=== PATIENT | male | born 1970 | race Caucasian/White ===

== ENCOUNTER 2019-12-20 14:16 | Emergency (ER) | payer OTHER, SELFPAY ==
--- NOTE | ~2019-12-20 | XR_ITS ---
EXAMINATION: [id number] DATE: 12/20/2019 14:36 INDICATION: Right rib pain. TECHNIQUE: A frontal view of the chest and 3 views of the right ribs were obtained. COMPARISON: Chest 2 views 02/28/2015 FINDINGS: There is no pneumonia, pleural effusion, or pneumothorax. The heart size is normal. Calcifi ed left hilar lymph nodes are consistent with old granulomatous disease. There is a fracture of right fifth rib. IMPRESSION: 1. Right fifth rib fracture. Reviewed, dictated and finalized at location A.
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
[2019-12-20 14:24] VITALS: BP 137/83; PULSE 71; RESP 16; TEMP 36.7; O2SAT 99
== END 2019-12-20 15:07 | disposition home or self-care (01) ==
PROVIDERS: Emergency Provider Nurse Practitioner; PCP Family Medicine
DX: S60.416A Abrasion of right little finger, initial encounter (principal); V19.9XXA Pedal cyclist (driver) (passenger) injured in unspecified traffic accident, initial encounter; S22.31XA Fracture of one rib, right side, initial encounter for closed fracture
CPT/HCPCS: 71101; 99213; G0463

== ENCOUNTER → 2020-02-28 14:28 | Outpatient (CLI) | payer OTHER, SELFPAY ==
--- NOTE | ~2020-02-28 | MR_ITS ---
EXAMINATION: MR shoulder LT wo con DATE: 02/28/2020 15:15 INDICATION: Chronic left shoulder pain. TECHNIQUE: Magnetic resonance imaging (MRI) of the left shoulder was performed without intravenous co ntrast. Sequences included axial PD-weighted FS FSE, coronal oblique PD-weighted FS FSE and T2-weight ed FS FSE, and sagittal oblique T2-weighted FS FSE and T1-weighted FSE. COMPARISON: None. FINDINGS: Coracoacromial arch: The acromion undersurface is curved in morphology (type II). There is mild acromioclavicular joint os teoarthritis. There is mild subacromial/subdeltoid bursitis. Rotator cuff: There is mild supraspinatus and infraspinatus tendinopathy. Teres minor tendon is normal. Subscapular is tendon is normal. No tear. There is no asymmetric fatty atrophy of the rotator cuff muscle bellies . Biceps tendon and glenoid labrum: Biceps tendon is in bicipital groove. Intra-articular biceps tendon is normal. The glenoid labrum is normal. Fluid: There is no glenohumeral joint effusion. Bones/cartilage: Glenoid cartilage is normal. Humeral head cartilage is normal. There is a benign bone island in humer al head. IMPRESSION: 1. Mild rotator cuff tendinopathy. No tear. 2. Mild acromioclavicular joint osteoarthritis. 3. Mild subacromial/subdeltoid bursitis. Reviewed, dictated and finalized at location B. ISH TEACHER
== END ==
PROVIDERS: PCP Family Medicine
DX: M25.512 Pain in left shoulder (principal); G89.29 Other chronic pain; M75.82 Other shoulder lesions, left shoulder; M19.012 Primary osteoarthritis, left shoulder; M75.52 Bursitis of left shoulder
CPT/HCPCS: 73221

== ENCOUNTER → 2020-02-29 12:15 | Outpatient (CLI) | payer OTHER, SELFPAY ==
--- NOTE | ~2020-02-29 | MR_ITS ---
EXAMINATION: MR knee RT wo con DATE: 02/29/2020 12:58 INDICATION: Chronic right knee pain TECHNIQUE: Magnetic resonance imaging (MRI) of the right knee was performed without intravenous contr ast. Sequences included coronal PD-weighted FSE, coronal PD-weighted FS FSE, sagittal T2-weighted FS E, sagittal PD-weighted FS FSE and axial PD weighted fat saturated FSE. COMPARISON: None. FINDINGS: Medial compartment: The medial meniscal body and posterior horn are small, virtually absent in a small portion of the men iscal body likely reflecting changes of interval partial meniscectomy for a prior displaced bucket-tapia ndle tear. No evident recurrent tear of the remaining meniscus. Deep chondral ulceration along the an terior to central weightbearing medial femoral condyle in places likely full/near full-thickness with a few foci of underlying subarticular edema at the anterior weightbearing medial femoral condyle. Si milar deep chondral ulceration at the central to medial aspect of the medial tibial plateau with ale tional small focus of subarticular edema at the medial rim of the medial tibial plateau. A severe par tial thickness cartilage loss with scattered mild chondral surface irregularity throughout the remain trevor of the medial compartment. Lateral compartment: Lateral meniscus is normal. Partial-thickness cartilage loss along the posterior and lateral rim of t he lateral tibial plateau with deep chondral fissure extending 12 mm obliquely from the central to po sterior aspect of the lateral tibial plateau. Small region of deep chondral ulceration with minimal u nderlying cortical irregularity at the central aspect of the weightbearing lateral femoral condyle. C hondral fissuring with additional cortical irregularity and mild subcortical edema at the posterior m argin of the weightbearing lateral femoral condyle. Patellofemoral compartment: Partial-thickness cartilage loss with deep fissuring at the remaining cartilage without degenerative subchondral changes involving significant portions of the lateral facet, the apical ridge and lateral side of the medial facet. Additional extensive deep cartilage loss with chondral surface irregularit y and in places full-thickness with foci of underlying subarticular edema involving significant porti on of the medial lateral trochlea and intervening trochlear groove. There is mild regularity to the a rticular cortex at the trochlear groove and medial trochlea with very small central subchondral osteo phytes. Ligaments and tendons: Anterior and posterior cruciate ligaments are normal. The medial collateral ligament and fibular aleta ateral ligament complex are normal. Mild distal quadriceps tendinopathy with small enthesophytes at i ts patellar insertion. Minimal patellar tendinopathy. The visualized medial and lateral hamstring ten dons as well as the iliotibial band are normal. Fluid: Physiologic amount of fluid in the joint space. No loose osteochondral bodies identified. Osseous/other: Normal marrow signal aside from the previous noted foci of mild subarticular edema. No fracture or pa thologic marrow replacing process. There are linear bands of low signal intensity likely postoperativ e scarring in Hoffa's fat pad extending anteroposteriorly along likely trocar access sites at both th e medial and lateral sides of the patellar tendon. IMPRESSION: 1. Small posterior horn and diminutive body of the medial meniscus likely reflecting changes of prior partial meniscectomy. Correlate with surgical history. 2. Minimal progression in tricompartmental osteoarthritis, moderate severity with extensive high-grad e chondral malacia in the medial compartment, mild to moderate with extensive high-grade chondral mal acia in the patellofemoral compartment and mild with moderate to high-grade chondral malacia in the l ateral compartment.
== END ==
PROVIDERS: PCP Family Medicine
DX: M17.11 Unilateral primary osteoarthritis, right knee (principal)
CPT/HCPCS: 73721

== ENCOUNTER → 2021-10-20 11:45 | Outpatient (CLI) | payer OTHER, SELFPAY ==
--- NOTE | ~2021-10-20 | XR_ITS ---
XR lumbar spine min 4V DATE: 10/20/2021 12:25 INDICATION: Back pain TECHNIQUE: AP, lateral, bilateral oblique views, coned lateral lumbosacral view COMPARISON: None FINDINGS: Minimal lumbar dextroscoliosis. Normal alignment of the lumbar spine. No fracture or bone d estruction is detected. Right L5 pars interarticularis defect. No spondylolysis or spondylolisthesis is noted otherwise. The sacroiliac joints are intact. IMPRESSION: Minimal lumbar dextroscoliosis Right L5 pars interarticularis defect Reviewed, dictated and finalized at location B.
== END ==
PROVIDERS: PCP Family Medicine; Visit Provider Physician Assistant Medical
DX: M54.9 Dorsalgia, unspecified (principal); M41.86 Other forms of scoliosis, lumbar region; M53.86 Other specified dorsopathies, lumbar region
CPT/HCPCS: 72110

== ENCOUNTER → 2022-04-10 09:47 | Outpatient (CLI) | payer OTHER, SELFPAY ==
--- NOTE | ~2022-04-10 | CT_ITS ---
CT Abdomen and Pelvis with contrast. History: Abdominal pain. Spiral CT of the abdomen and pelvis was performed after the administration of intravenous contrast. 1 00 cc of Omnipaque 350 was administered intravenously without complication. Dose reduction technique was used on this scan by utilizing automated exposure control and iterative reconstruction technique. The dose-length product (DLP) was 758.83 mGy-cm. Findings: Scans through the lung bases demonstrate mild atelectatic change. The liver, spleen, pancreas, gallbladder, adrenals and kidneys are within normal limits. No evidence of aortic aneurysm. No lymphadenopathy is seen. There is no evidence of bowel obstruction. There is no evidence to suggest acute appendicitis or dive rticulitis. Images through the pelvis were performed. Urinary bladder unremarkable. Prostate gland and seminal ve sicles are unremarkable. No ascites is seen. Bilateral L5 pars interarticularis defects are noted. Impression: No acute abnormality. Bilateral L5 pars interarticularis defects are noted. Reviewed, dictated and finalized at [facility]. [employer] DESIGN ENGINEER Impression: No acute abnormality. Bilateral L5 pars interarticularis defects are noted.
== END ==
PROVIDERS: PCP Family Medicine; Visit Provider Physician Assistant
DX: R10.9 Unspecified abdominal pain (principal)
CPT/HCPCS: 74177; Q9967

== ENCOUNTER 2023-03-24 09:34 | Outpatient (CLI) | payer OTHER, SELFPAY ==
--- NOTE | ~2023-03-24 | XR_ITS ---
EXAMINATION: XR sacrum coccyx min 2V DATE: 03/24/2023 10:28 INDICATION: Low back pain, unspecified. TECHNIQUE: 3 views of the sacrum and coccyx were obtained. COMPARISON: CT abdomen and pelvis 04/10/2022 FINDINGS: There is lumbar dextrocurvature and mild spondylosis. There are chronic bilateral L5 pars d efects. There is 3 mm anterolisthesis of L5 on S1. There is mild osteoarthritis of the sacroiliac glory nts. There is moderate right hip osteoarthritis and mild left hip osteoarthritis. IMPRESSION: 1. Polyarticular osteoarthritis. 2. Chronic bilateral L5 pars defects with grade 1 anterolisthesis of L5 on S1. Reviewed, dictated and finalized at location E. ICAL SERVICES MANAGER
--- NOTE | ~2023-03-24 | XR_ITS ---
XR sacroiliac joints min 3V DATE: 03/24/2023 10:28 INDICATION: Low back pain TECHNIQUE: AP and bilateral oblique views of the sacroiliac joints COMPARISON: None FINDINGS: No fracture or dislocation, erosive change or ankylosis at the sacroiliac joints. The pubic symphysis is intact. IMPRESSION: Negative Reviewed, dictated and finalized at Location A. Reviewed, dictated and finalized at location B. [employer] IMPRESSION: Negative
== END 2023-03-24 09:35 ==
PROVIDERS: PCP Physician Assistant Medical; Visit Provider Physician Assistant Medical
DX: M15.9 Polyosteoarthritis, unspecified (principal); M53.86 Other specified dorsopathies, lumbar region; M47.817 Spondylosis without myelopathy or radiculopathy, lumbosacral region
CPT/HCPCS: 72202; 72220

== ENCOUNTER 2023-04-06 08:48 | Outpatient (CLI) | payer OTHER, SELFPAY ==
--- NOTE | ~2023-04-06 | US_ITS ---
Abdominal Sonogram: Real-time sonographic imaging of the abdomen was performed. Clinical History: Abdominal pain Findings: The liver appears echogenic, with no evidence of mass lesion or bile duct dilatation. Main portal vein demonstrates normal direction of flow. The spleen is normal in size without evidence of focal lesion. The gallbladder is well distended, and appears normal with no evidence of gallstone or wall thickening. The common bile duct measures 3 mm. The visualized pancreas, aorta, and IVC are un remarkable. The right kidney measures 10.4 cm in length and the left kidney measures 10.6 cm. There is no hydronephrosis or renal calculus. Impression: Diffuse fatty infiltration of the liver. Reviewed, dictated and finalized at location M. WINDER Impression: Diffuse fatty infiltration of the liver.
== END 2023-04-06 08:49 ==
PROVIDERS: PCP Physician Assistant Medical; Visit Provider Physician Assistant Medical
DX: K76.0 Fatty (change of) liver, not elsewhere classified (principal); R10.10 Upper abdominal pain, unspecified
CPT/HCPCS: 76700